=== PATIENT | female | born 1985 | race Caucasian/White ===

== ENCOUNTER → 2016-05-17 | Outpatient (CLI) | payer BC, OTHER, SELFPAY ==
[~2016-05-17] MED LIST: ANUS2.5C2 TOP; DIBU0.5O TOP; MOM30SS PO; MOTR200T44 PO; PERCOCET PO; PRENTAB16 PO; ZOMI5SPR
[2016-05-18 10:54] LABS: HBsAg Prenatal NEGATIVE (NEGATIVE)
== END ==
LOC: M LAB 08:01
PROVIDERS: ATTEND Advanced Practice Midwife
DX: Z34.81 Encounter for supervision of other normal pregnancy, first trimester (principal)

== ENCOUNTER → 2016-08-15 | Outpatient (CLI) | payer MEDICAID ==
[2016-08-15 16:18] LABS: MEAN CORPUSCULAR VOLUME 91.3 fl (80.0-96.0); RED CELL DISTRIBUTION WIDTH 13.1 % (11.5-14.5); WHITE BLOOD COUNT 10.5 K/mm3 (4.0-10.0)
--- NOTE | 2016-08-15 17:31 | REP ---
OB ULTRASOUND: REASON: anatomy. PRIORS: None. Multiple ultrasonic images of the gravid uterus show a single living intrauterine gestation the cephalic presentation. Doppler interrogation of the heart shows a heart rate of 141 beats per minute. The placenta is posterior and not low lying. The subjective aminotic fluid volume is within normal limits. The cervix measures 3.6 cm in length and is closed. Evaluation of the maternal adnexal spaces showed no abnormalities. The structures visualized as unremarkable are as follows: Thalami, cavum septum pellucidum, cerebellum, cisterna magna, spine, urinary bladder, three vessel umbilical cord, cord insertion, four chamber heart, outflow tracts right and left, upper lip, stomach, and both upper and lower extremities. The kidneys were not optimally visualized. BPD 6.3 cm = 25 weeks 2 days HC 23.1 cm = 25 weeks 1 day AC 22.4 cm = 26 weeks 5 days FL 4.9 cm = 26 weeks 5 days Estimated weight is 940 grams which is at the 97th percentile for a 24 week 4 day gestational age. IMPRESSION: Single intrauterine gestation as described above with an estimated gestational age of 26 weeks 2 days via composite criteria with an estimated date of delivery of 11/19/2016 by today's exam. No anomalies were detected, however, only one of the kidneys was well visualized. I would recommend a followup examination to repeat imaging of the kidneys. Signed by Jsoue Soliz DO 08/17/2016 03:42 P
== END ==
LOC: M LAB 15:20
PROVIDERS: ATTEND Obstetrics & Gynecology
DX: Z36 Encounter for antenatal screening of mother (principal); Z3A.26 26 weeks gestation of pregnancy

== ENCOUNTER → 2016-10-18 | Outpatient (REF) | payer MEDICAID, OTHER ==
[2016-10-18 18:19] LABS: MEAN CORPUSCULAR HEMOGLOBIN 28.8 pg (27.0-33.0); MEAN CORPUSCULAR HGB CONC 32.8 g/dl (32.0-36.5); MEAN CORPUSCULAR VOLUME 87.6 fl (80.0-96.0); RED CELL DISTRIBUTION WIDTH 12.6 % (11.5-14.5); WHITE BLOOD COUNT 12.5 K/mm3 (4.0-10.0)
[2016-10-18 19:04] LABS: ALBUMIN 2.8 GM/DL (3.2-5.2); ALBUMIN/GLOBULIN RATIO 0.78 (1.00-1.93); ALKALINE PHOSPHATASE 135 U/L (45-117); ALT/SGPT 11 U/L (12-78); ANION GAP 8 MEQ/L (8-16); AST/SGOT 15 U/L (15-37); BILIRUBIN,TOTAL 0.2 MG/DL (0.2-1.0); BLOOD UREA NITROGEN 6 MG/DL (7-18); CALCIUM LEVEL 8.4 MG/DL (8.5-10.1); CARBON DIOXIDE LEVEL 25 MEQ/L (21-32); CHLORIDE LEVEL 104 MEQ/L (98-107); CREATININE FOR GFR 0.45 MG/DL (0.55-1.02); GLOMERULAR FILTRATION RATE > 60.0 (>60); GLUCOSE, FASTING 76 MG/DL (70-105); SODIUM LEVEL 137 MEQ/L (136-145); TOTAL PROTEIN 6.4 GM/DL (6.4-8.2)
== END ==
LOC: M LAB REF 16:38
PROVIDERS: ATTEND Obstetrics & Gynecology
DX: Z34.83 Encounter for supervision of other normal pregnancy, third trimester (principal); Z3A.33 33 weeks gestation of pregnancy

== ENCOUNTER → 2016-11-01 | Outpatient (REF) | payer MEDICAID | LOC: M LAB REF 17:21 | PROVIDERS: ATTEND Obstetrics & Gynecology | DX: Z34.83 Encounter for supervision of other normal pregnancy, third trimester (principal); Z3A.35 35 weeks gestation of pregnancy ==

== ENCOUNTER 2016-11-29 14:45 | Inpatient (IN) | payer MEDICAID ==
[~2016-11-29] VITALS: Ht 167.6 cm; Wt 82.3 kg
[2016-11-29] VITALS (12 sets, daily range): BP systolic 99–126; BP diastolic 55–81
--- NOTE | 2016-11-29 17:45 | HPEPDOC ---
Obstetrical History & Physical General Date of Admission Primary Care Physician: MAINOR MCQUEEN CNM History of Present Illness Patient is a 31 year old female who is a at 39.5 weeks with an MIRELLA of 12/01/16 based off of her LMP and consistent with her 1st trimester ultrasound. She initated care in hr 1st trimester at [facility]. Her has been uncomplicated. She has a history of a prior c/s from 2003 with a to follow in 2013. She presents to L&D today with complaints of contractions. She presented in the office in the am and was found to be 4-5 cm. After presenting to L&D her cervix was 5/75/-2 with a moderate amount of bloody show. She progressed to 5-6/80/-2, midposition, bloody show, with a bulging bag of fluid. She reports active movement. Denies leaking of fluid. Chief Complaint: Contractions, term Information Provided By: Patient Age: 31 : 3 Term: 2 Pre-term: 0 Abortions: 0 Livin Care Care: Good Care Dating Final EDC: Dec 01, 2016 Final EDC by: LMP LMP: Feb 25, 2016 EGA at Admission: 39.5 Antepartum Course Diagnos(e)s Prior Prior Height (inches): 66 Pre- weight (lbs.): 155 Admission Weight (lbs.): 184 Change in Weight (lbs.): 29 Past Medical History Past Obstetrical History #1: Past Obstetrical History: Multigravida Gestation: 37 Type of Delivery: Ceserean section (11/2003) Sex of Infant: Female (weighting 5 lbs 10oz) Complications: Yes (oligohydramnios and breech presentation) Past Obstetrical History #2: Gestation: 40.6 Type of Delivery: Spontaneous Vaginal Del. Sex of Infant: Female (weighing 7 lbs 1 oz) Complications: No () HEAD CHEF History: No pertinent history Past Medical History Medical History Varicella as a child Surgical History: section, Dilatation and Curettage Family History Significant Family History: Cancer, Hypertension Social History Family situation: Spouse/partner home Psychosocial History: No pertinent psych hx * Smoker: former Smoker Alcohol: Denies Drugs: denies Abuse Violence Screening Have you been hit/kicked/slapp: No Have you been sexually assault: No Allergies Coded Allergies: Diazepam (Unverified Allergy, Mild, 02/02/14) Medications Scheduled PRN Zolmitriptan (Zomig Nasal [place]) 5 Mg Spr, 5 MG NA PRN PRN for MIGRAINE Physical Examination Physical Examination GENERAL: Alert and oriented times three. BREAST: . ABDOMEN: Gravid and non-tender to touch. FETUS: Is vertex (VTX) by sterile vaginal examination (SVE), fetus is vertex ( VTX) by Tobias. EFW via Tobias's is 3900 grams. HEART RATE: Regular rate and rhythm. LUNGS: Clear to auscultation (CTA). EXTREMITIES: No edema. No clonus. Vital Signs/I&O Vital Signs Date Time Temp Pulse Resp B/P (MAP) Pulse Ox O2 Delivery O2 Flow Rate FiO2 11/29/16 17:13 85 18 112/67 (82) 11/29/16 15:28 98.9 98 Room Air Laboratory Data Urine Culture: No Growth Pertinent Laboratoy Data Blood Type: A+ RBC Antibody Screen: Negative HIV: Negative Hepatitis B: Negative Rapid Plasma Reagin: Nonreactive Rubella: Immune Chlamydia/Gonorrhea: Negative Group B Streptococcus: Negative Quad Screen Test: Positive Glucose Tolerance Test: 94 Anatomy Ultrasound Ultrasound Date: Nov 08, 2016 Placenta Location: Posterior Normal Anatomy: Yes (8lbs 3 oz.) Placenta Previa: No Vaginal Examination Dilation: other (56 cm) Effacement: 75% Station: -2 Cervical Consistency: Soft Cervical Position: Middle Presentation: Cephalic presentation Position: Vertex (occiput) Assessment Heart Rate (FHR): 120 Variability: Moderate Accelerations: Positive Decelerations: None Tocometer Contractions: Yes Frequency: other (2 to 7 minutes) Strength: palpated as moderate Multi-drug resistant Organism: No history of MDRO Assessment/Plan Assessment IUP at 39.5 wks gestation Prior with successful , Desires TOLAC Category I FHR tracing Active labor Plan Patient admitted to L&D. Labs and IV per protocol. Dr. Smith present in hospital and anesthesia notified of . Clear liquid diet. OOB ad cecilia. Patient desires an epidural for pain management. Anesthesia consult ordered. Anticipate cervical change and . Consider IV Pitocin or AROM. Dr Augustine aware of patient being in department MAINOR MCQUEEN CNM Nov 29, 2016 17:45
[2016-11-29] MEDS ORDERED: LACTATED RINGER'S 1000 ML IV STA (18:24)
[2016-11-29] MEDS ORDERED: LR 1,000 ML IV SCH (18:24)
[2016-11-29 18:52] LABS: MEAN CORPUSCULAR HEMOGLOBIN 28.7 pg (27.0-33.0); MEAN CORPUSCULAR HGB CONC 33.5 g/dl (32.0-36.5); MEAN CORPUSCULAR VOLUME 85.7 fl (80.0-96.0); RED CELL DISTRIBUTION WIDTH 16.1 % (11.5-14.5); WHITE BLOOD COUNT 10.8 K/mm3 (4.0-10.0)
[2016-11-29] MEDS ORDERED: FENTANYL 2MCG/ML ROPIVACAINE 0.2% IN 0.9% NACL 200ML IVBAG As Ordered ONE (21:33)
[2016-11-29] MEDS ORDERED: FENTANYL/ROPIVACAINE/NACL BAG 200 ML EPIDURAL SCH (22:30)
[2016-11-29] MEDS ORDERED: LACTATED RINGER'S 1000 ML IV PRN (22:30)
[2016-11-29] MEDS ORDERED: NALOXONE INJ 0.4 MG/1 ML VIAL (J2310) IV PRN (22:30)
[2016-11-29] MEDS ORDERED: ePHEDrine SULFATE 25 MG/5 ML(5MG/ML) SYRINGE IV PRN (22:30)
[2016-11-29] MEDS ORDERED: diphenhydrAMINE INJ 50MG/ML VIAL (J1200) IV PRN (22:30)
[2016-11-29] MEDS ORDERED: EPIDURAL/PCA KEYS XX PRN (22:30)
[2016-11-29] MEDS ORDERED: ONDANSETRON 4MG/2ML VIAL (J2405) IV PRN (22:30)
[2016-11-29] MEDS ORDERED: REFRIGERATOR IV KEYS XX PRN (22:30)
[2016-11-29] MEDS ORDERED: EPIDURAL COMMENT XX SCH (22:30)
[2016-11-29] MEDS ORDERED: OXYTOCIN DRIP 30 UNITS in APPROPRIATE DILUENT 1 EA IV SCH (22:45)
--- NOTE | 2016-11-29 22:54 | IPNPDOC ---
Text Note Date of Service The patient was seen on 11/29/16. NOTE Subjective: Patient reports she is comfortable with her epidural. Objective: FHR: 135, moderate variability, positive accelerations, no decelerations. Contractions every 1.5-7 min. Assessment: IUP at 39.5 wks gestation, prior with successful , TOLAC, active labor, Category I FHR tracing Plan: Plan Pitocin. Risks, benefits, and alternatives reviewed with patient. Patient counseled and accepts Pitocin augmentation. Consider AROM. Anticipate cervical change and . VS,Fishbone, I+O VS, Fishbone, I+O Laboratory Tests 11/29/16 18:41 Red Blood Count 4.09, Mean Corpuscular Volume 85.7, Mean Corpuscular Hemoglobin 28.7, Mean Corpuscular Hemoglobin Concent 33.5, Red Cell Distribution Width 16.1 H Vital Signs Date Time Temp Pulse Resp B/P (MAP) Pulse Ox O2 Delivery O2 Flow Rate FiO2 11/29/16 22:11 97.6 109 18 107/69 (82) 11/29/16 15:28 98 Room Air MAINOR MCQUEEN CNM Nov 29, 2016 22:54
[2016-11-30] MEDS ORDERED: METHYLERGONOVINE MALEATE 0.2 MG/ML VIAL (J2210) As Ordered ONE (03:34)
[2016-11-30] MEDS ORDERED: OXYTOCIN DRIP 30 UNITS in APPROPRIATE DILUENT 1 EA IV SCH (04:44)
[2016-11-30] MEDS ORDERED: ANUSOL HC CREAM 30GM TOP PRN (04:45)
[2016-11-30] MEDS ORDERED: DOCUSATE SODIUM 100 MG CAP PO PRN (04:45)
[2016-11-30] MEDS ORDERED: METHYLERGONOVINE MALEATE 0.2 MG/ML VIAL (J2210) IM ONE (04:45)
[2016-11-30] MEDS ORDERED: METHYLERGONOVINE MALEATE 0.2 MG TAB PO PRN (04:45)
[2016-11-30] MEDS ORDERED: MEASLES,MUMPS,RUBELLA VACCINE INJ (MMR-II) (90707) SC SCH (04:45)
[2016-11-30] MEDS ORDERED: RHOGAM 300 MCG (1500 IU) INJ (J2790) IM SCH (04:45)
[2016-11-30] MEDS ORDERED: DIBUCAINE 1% OINTMENT 30GM TOP PRN (04:45)
--- NOTE | 2016-11-30 05:11 | DNPDOC ---
[facility] Delivery Note Delivery Note DATE OF DELIVERY: Nov 29, 2016 at 03:15 POST DELIVERY DIAGNOSIS: Delivered. PROCEDURE: . DESIGN CHIEF: Mainor Aden CNM, CLARIBEL ANESTHESIA: epidural ESTIMATED BLOOD LOSS: 700 mL. FINDINGS: 9 pound 3 ounce 4160 grams, male infant, Score 9/9, nuchal cord times 1 loose. DELIVERY SUMMARY: Patient is a 31-year-old female, now a who was admitted to labor and delivery in active labor. She received an epidural for pain management. Her labor was augmented with IV Pitocin. She spontaneously ruptured of clear fluids at 0100. She progressed to fully dilated at 0221. She pushed to a live male at 0315 in the ROP position with restitution to ROT. A loose nuchal was noted and reduced. The anterior shoulder delivered with ease and the corpus immediately followed. The baby was placed on maternal abdomen active and crying. The cord was clamped 2 after 3 minutes and cut by father of the baby. Three-vessel cord noted. The placenta delivered at 0321 spontaneously with trailing membranes. The membranes were removed with ring forceps. Uterine hemostasis achieved by rapid infusion of IV Pitocin and fundal massage. A dose of Methergine IM was given to help with some excessive bleeding. The perineum and vagina were inspected and found to have a second-degree perineal laceration which was repaired with a 3. 0 Vic[address]ide [address]1 until hemostasis was achieved. The perineum was very edematous. Order for ice diaper to be given. EBL 700. 9 and 9. Weight 9 lbs. 3 oz., 4160 g. Mom plans to breast-feed baby. MAINOR ADEN CNM Nov 30, 2016 05:11
[2016-11-30 06:00] VITALS: BP 122/80
[2016-11-30] MEDS: ACETAMINOPHEN 500 MG TAB PO PRN ×3 (06:42→22:42)
[2016-11-30] MEDS: IBUPROFEN 800 MG TAB PO PRN ×2 (06:42→15:59)
[2016-11-30] MEDS: PRENATAL VITAMINS CHEWABLE TABLET PO SCH (08:20)
[2016-11-30 18:28] VITALS: BP 108/67
[2016-12-01] MEDS: IBUPROFEN 800 MG TAB PO PRN (04:51)
[2016-12-01 06:12] VITALS: BP 99/62
[2016-12-01 07:46] LABS: MEAN CORPUSCULAR HEMOGLOBIN 28.5 pg (27.0-33.0); MEAN CORPUSCULAR HGB CONC 33.2 g/dl (32.0-36.5); MEAN CORPUSCULAR VOLUME 86.1 fl (80.0-96.0); RED CELL DISTRIBUTION WIDTH 16.2 % (11.5-14.5)
[2016-12-01] MEDS: PRENATAL VITAMINS CHEWABLE TABLET PO SCH (08:27)
[2016-12-01] MEDS: ACETAMINOPHEN 500 MG TAB PO PRN (12:39)
--- NOTE | 2016-12-02 21:55 | DSES ---
DATE OF ADMISSION: 11/29/2016 DATE OF DISCHARGE: 12/01/2016 FINAL DIAGNOSIS: Status post successful vaginal after () at term. DISCHARGE CONDITION: Stable. DISCHARGE INSTRUCTIONS: Given. The patient is to call if there is any severe bleeding, pain or temperature greater than 101. BRIEF HISTORY: Ms. Godinez is 31-year-old female 3, para 2-0-0-2, was admitted at 39-5/7 weeks gestation in active labor. She has a history of prior section followed by successful vaginal after (). She now desires another trial of labor. She underwent another successful vaginal after () , was then transferred to maternity for care. she did well, remained afebrile all throughout her hospital stay. On day number two, her exam was within normal limits. At this point a decision was made for discharge. Discharge instructions given. She needs to call the office to make an appointment for the six week visit.
== END 2016-12-01 15:15 | disposition home or self-care (01) | DRG 560 ==
LOC: M LDO 14:45 → M LDI 18:28 → M OBS 11-30 06:33
PROVIDERS: ADMIT Advanced Practice Midwife; ATTEND Advanced Practice Midwife
PROC: 10E0XZZ Delivery of Products of Conception, External Approach (ICD-10-PCS; principal; 2016-11-29)
PROC: 0KQM0ZZ Repair Perineum Muscle, Open Approach (ICD-10-PCS; 2016-11-29)
DX: O34.211 Maternal care for low transverse scar from previous cesarean delivery (principal); Z3A.39 39 weeks gestation of pregnancy; O70.1 Second degree perineal laceration during delivery; Z37.0 Single live birth

== ENCOUNTER 2017-08-16 10:17 | Emergency (ER) | payer OTHER, MEDICAID ==
[2017-08-16] MEDS: diphenhydrAMINE INJ 50MG/ML VIAL (J1200) IV (10:42)
[2017-08-16] MEDS: NS 1,000 ML IV (10:45)
[2017-08-16] MEDS: METOCLOPRAMIDE INJ 10MG/2ML VIAL (J2765) IV (10:45)
[2017-08-16] MEDS: KETOROLAC 30 MG/ML VIAL (J1885) IV (10:45)
[2017-08-16] MEDS: ACETAMINOPHEN 325 MG TAB PO (12:00)
== END 2017-08-16 12:46 | disposition home or self-care (01) ==
LOC: M ED 10:17
DX: G43.709 Chronic migraine without aura, not intractable, without status migrainosus (principal); Z88.8 Allergy status to other drugs, medicaments and biological substances
CPT/HCPCS: J1200

== ENCOUNTER → 2017-09-02 | Outpatient (CLI) | payer OTHER ==
[2017-09-02 15:00] LABS: HEMATOCRIT 38.5 % (36.0-47.0); HEMOGLOBIN 13.3 g/dl (12.0-15.5); MEAN CORPUSCULAR HGB CONC 34.5 g/dl (32.0-36.5); MEAN CORPUSCULAR VOLUME 86.7 fl (80.0-96.0); PLATELET COUNT, AUTOMATED 394 10^3/uL (150-450); RED BLOOD COUNT 4.44 10^6/uL (4.00-5.40); WHITE BLOOD COUNT 7.8 10^3/uL (4.0-10.0)
[2017-09-02 15:38] LABS: LUTEINIZING HORMONE 6.6 mIU/mL
[2017-09-02 15:39] LABS: FOLLICLE STIMULATING HORMONE 5.1 mIU/mL
[2017-09-02 15:40] LABS: FREE T4 1.11 NG/DL (0.76-1.46); THYROID STIMULATING HORMONE 0.748 uIU/ML (0.358-3.740)
[2017-09-04 14:16] LABS: TESTOSTERONE FREE (DIRECT) 1.5 pg/mL (0.0-4.2)
== END ==
LOC: M LAB 14:23
DX: N92.1 Excessive and frequent menstruation with irregular cycle (principal)
CPT/HCPCS: 83001

== ENCOUNTER → 2017-09-09 | Outpatient (CLI) | payer OTHER | LOC: M RAD 16:40 | DX: N92.1 Excessive and frequent menstruation with irregular cycle (principal) | CPT/HCPCS: 76856 ==

== ENCOUNTER → 2019-11-12 | Outpatient (CLI) | payer OTHER ==
[~2019-11-12] MED LIST changes: +MULT1CHW26 PO
[2019-11-12 07:06] LABS: BASO # 0.1 10^3/uL (0.0-0.2); EOS # 0.1 10^3/uL (0.0-0.5); EOS % 1.6 % (0.0-3.0); HEMATOCRIT 39.5 % (36.0-47.0); HEMOGLOBIN 13.2 g/dl (12.0-15.5); LYMPH # 2.4 10^3/uL (1.5-5.0); LYMPH % 34.6 % (24.0-44.0); MEAN CORPUSCULAR HEMOGLOBIN 29.6 pg (27.0-33.0); MEAN CORPUSCULAR HGB CONC 33.4 g/dl (32.0-36.5); MEAN CORPUSCULAR VOLUME 88.6 fl (80.0-96.0); MONO # 0.6 10^3/uL (0.0-0.8); MONO % 8.2 % (0.0-5.0); NEUTROPHILS # 3.7 10^3/uL (1.5-8.5); NEUTROPHILS % 54.5 % (36.0-66.0); PLATELET COUNT, AUTOMATED 401 10^3/uL (150-450); RED BLOOD COUNT 4.46 10^6/uL (4.00-5.40); WHITE BLOOD COUNT 6.8 10^3/uL (4.0-10.0)
[2019-11-12 07:27] LABS: HEMOGLOBIN A1c 5.3 %
[2019-11-12 07:42] LABS: ALBUMIN 3.9 GM/DL (3.2-5.2); ALT/SGPT 18 U/L (12-78); BILIRUBIN,TOTAL 0.5 MG/DL (0.2-1.0); BLOOD UREA NITROGEN 15 MG/DL (7-18); CALCIUM LEVEL 8.8 MG/DL (8.5-10.1); CARBON DIOXIDE LEVEL 27 MEQ/L (21-32); CHLORIDE LEVEL 106 MEQ/L (98-107); CHOLESTEROL LEVEL 161 MG/DL (<200); CHOLESTEROL RISK RATIO 3.285 (<5); CREATININE FOR GFR 0.74 MG/DL (0.55-1.30); FREE T4 1.05 NG/DL (0.76-1.46); GLOMERULAR FILTRATION RATE > 60.0 (>60); GLUCOSE, FASTING 84 MG/DL (70-100); HDL CHOLESTEROL 49 MG/DL (>40); LDL CHOLESTEROL 99 MG/DL (<100); NON-HDL-C 112 MG/DL; POTASSIUM SERUM 4.2 MEQ/L (3.5-5.1); SODIUM LEVEL 140 MEQ/L (136-145); TOTAL PROTEIN 7.5 GM/DL (6.4-8.2); TRIGLYCERIDES LEVEL 63 MG/DL (<150)
[2019-11-12 11:57] LABS: TOTAL 25(OH) VITAMIN D 34.1 NG/ML (30.0-100.0)
== END ==
LOC: M LAB 06:41
PROVIDERS: ATTEND Physician Assistant
DX: Z13.29 Encounter for screening for other suspected endocrine disorder (principal); Z13.220 Encounter for screening for lipoid disorders

== ENCOUNTER → 2020-01-14 | Outpatient (REF) | payer OTHER | LOC: M SFHCWAGY 13:13 | PROVIDERS: ATTEND Advanced Practice Midwife | DX: Z12.4 Encounter for screening for malignant neoplasm of cervix (principal) ==

== ENCOUNTER → 2020-02-18 | Outpatient (REF) | payer OTHER | LOC: M LAB REF 10:05 | PROVIDERS: ATTEND Specialist | DX: R87.610 Atypical squamous cells of undetermined significance on cytologic smear of cervix (ASC-US) (principal) ==

== ENCOUNTER → 2020-03-13 | Outpatient (CLI) | payer OTHER | LOC: M LABSMTC 08:29 | PROVIDERS: ATTEND Anesthesiology | DX: Z01.812 Encounter for preprocedural laboratory examination (principal); Z20.828 Contact with and (suspected) exposure to other viral communicable diseases ==

== ENCOUNTER 2020-03-18 12:56 | Day surgery (SDC) | payer OTHER ==
[~2020-03-18] VITALS: Ht 167.6 cm; Wt 80.3 kg
[~2020-03-18 12:56] MED LIST changes: +LIDOCAINE 1% MDV 20ML VIAL SQ PRN; +LR 1,000 ML IV ONE
[2020-03-18 13:42] LABS: HEMATOCRIT 41.7 % (36.0-47.0); HEMOGLOBIN 13.5 g/dl (12.0-15.5); MEAN CORPUSCULAR HEMOGLOBIN 28.7 pg (27.0-33.0); MEAN CORPUSCULAR HGB CONC 32.4 g/dl (32.0-36.5); MEAN CORPUSCULAR VOLUME 88.7 fl (80.0-96.0); PLATELET COUNT, AUTOMATED 439 10^3/uL (150-450); WHITE BLOOD COUNT 12.2 10^3/uL (4.0-10.0)
[2020-03-18] MEDS ORDERED: ZOLMITRIPTAN 5 MG ONE (14:45)
[2020-03-18] MEDS ORDERED: LIDOCAINE 2% 100MG/5ML SDV (FOR ANES.) As Ordered ONE (15:15)
[2020-03-18] MEDS ORDERED: propofoL 200 MG/20 ML VIAL As Ordered ONE (15:15)
[2020-03-18] MEDS ORDERED: ROCURONIUM BROMIDE 50 MG/5 ML VIAL As Ordered ONE (15:15)
[2020-03-18] MEDS ORDERED: ONDANSETRON 4MG/2ML VIAL As Ordered ONE (15:15)
[2020-03-18] MEDS ORDERED: dexameTHASONE 4 MG/ML 1ML VIAL (J1100 PER 1MG) As Ordered ONE (15:15)
[2020-03-18] MEDS ORDERED: MIDAZOLAM INJ 2MG/2ML VIAL (J2250 PER 1MG) As Ordered ONE (15:16)
[2020-03-18] MEDS ORDERED: fentaNYL 100 MCG/2 ML INJECTION (J3010) As Ordered ONE (15:16)
[2020-03-18] MEDS ORDERED: KETOROLAC 60MG 2ML VIAL As Ordered ONE (15:21)
[2020-03-18] MEDS ORDERED: IODINE STRONG SOLN 15 ML BTL As Ordered ONE (15:45)
[2020-03-18] MEDS ORDERED: BUPIVACAINE HCL 0.25% 30ML VIAL As Ordered ONE (15:45)
[2020-03-18] MEDS ORDERED: ACETAMINOPHEN 1000MG 100ML IV BTL (OFIRMEV) (J0131 PER 10MG) As Ordered ONE (16:19)
[2020-03-18] MEDS ORDERED: SUGAMMADEX SODIUM 500 MG/5 ML VIAL (BRIDION) As Ordered ONE (16:19)
[2020-03-18] MEDS ORDERED: HYDROmorphone HCL 2 MG/ML 1ML VIAL (J1170) As Ordered ONE (16:20)
[2020-03-18] MEDS ORDERED: LIDOCAINE W/EPINEPHRINE 1% 20ML VIAL As Ordered ONE (16:28)
[2020-03-18] MEDS ORDERED: LACRILUBE (AKWA TEARS) OPHTH OINT 3.5 GM As Ordered ONE (16:35)
[2020-03-18] MEDS ORDERED: METOCLOPRAMIDE INJ 10MG/2ML VIAL (J2765 PER 1) IV PRN (17:45)
[2020-03-18] MEDS ORDERED: LR 1,000 ML IV SCH ×2 (17:45)
[2020-03-18] MEDS ORDERED: fentaNYL 100 MCG/2 ML INJECTION (J3010) IV PRN (17:45)
[2020-03-18] MEDS ORDERED: PERCOCET 5MG/325MG TAB PO PRN ×2 (17:45)
[2020-03-18] MEDS ORDERED: MORPHINE 2 MG/ML 1ML VIAL (J2270) IV PRN (17:45)
[2020-03-18] MEDS ORDERED: ONDANSETRON 4MG/2ML VIAL IV PRN (17:45)
[2020-03-18] MEDS ORDERED: OXYC1TAB23 PO (17:59)
--- NOTE | 2020-03-18 18:33 | ROOPDOC ---
[facility] Report Of Operation Report of Operation DATE OF PROCEDURE: 03/18/20 PREPROCEDURE DIAGNOSES: Undesired fertility, Moderate cervical dysplasia. POSTPROCEDURE DIAGNOSES: same. PROCEDURE: Laparoscopic bilateral salpingectomy, LEEP of cervix. SURGEON: Radha Jorgensen MD ANESTHESIA: GETA. ESTIMATED BLOOD LOSS: Approximately 20 mL. COMPLICATIONS: none. FINDINGS: normal uterus, fallopian tubes, ovaries. PROCEDURE NOTE: The patient was taken to the operating room where general endotracheal anesthesia was induced. She was prepped and draped in sterile fashion in dorsal lithotomy position. The bladder was emptied with a catheter. A sponge stick was placed in the vagina to use as a manipulator. A periumbilical incision was made with the scalpel. A Veress needle was inserted through this incision while tenting up on the skin of the abdomen. An intra-abdominal location of the Veress needle was assessed with the use of a saline filled syringe. A pneumoperitoneum was created. The Veress needle was removed. A 5 mm trocar using Visiport was inserted through this incision. A 5 and 8 mm suprapubic port were inserted under direct visualization. A grasping instrument used to elevate each fallopian tube. A LigaSure device was used to coagulate and incise broad ligament attachments to the tube. Both fallopian tubes were amputated near their origin. Both tubes removed through the suprapubic ports.. The skin was closed 4-0 Monocryl subcuticular sutures. Dermabond was applied. Sponge, instrument and needle counts are correct. Attention was turned to the vagina. Speculum with smoke valve was placed. The anterior lip of the cervix grasped with tenaculum. The cervix was injected circumferentially with 14 mL of 1% lidocaine with epinephrine. An 8 mm x 15 mm loop with a setting of 90 Castano was used in a single pass excised transformation zone of the cervix. Ball electrocoagulation was used to coagulate the base of the cervix. Monsel's solution was applied. Good hemostasis was noted. All instruments were removed. Sponge and instrument counts are correct. Patient went to the recovery room in stable condition. RADHA JORGENSEN MD Mar 18, 2020 18:33
[2020-03-18 19:30] VITALS: BP 126/76
== END 2020-03-18 19:35 | disposition home or self-care (01) ==
LOC: M SDC 12:56
PROVIDERS: ATTEND Specialist
DX: Z30.2 Encounter for sterilization (principal); N87.0 Mild cervical dysplasia; G43.909 Migraine, unspecified, not intractable, without status migrainosus; Z86.2 Personal history of diseases of the blood and blood-forming organs and certain disorders involving the immune mechanism; Z87.891 Personal history of nicotine dependence; Z88.0 Allergy status to penicillin
CPT/HCPCS: 36415; 57461; 58661; 81025; 85027; 88302; 88307; 88342; 96374; 96375; J0131; J1100; J1170; J1885; J2250; J2405; J2765; J3010

== ENCOUNTER 2020-03-26 20:42 | Emergency (ER) | payer OTHER ==
[~2020-03-26] VITALS: Ht 167.6 cm; Wt 81.1 kg
[~2020-03-26 20:42] MED LIST changes: -LIDOCAINE 1% MDV 20ML VIAL SQ PRN; -LR 1,000 ML IV ONE; +OXYC1TAB23 PO
[2020-03-26] MEDS ORDERED: NS 1,000 ML IV ONE (21:45)
[2020-03-26 21:58] LABS: BASO # 0.1 10^3/uL (0.0-0.2); BASO % 0.7 % (0.0-1.0); EOS # 0.2 10^3/uL (0.0-0.5); EOS % 1.8 % (0.0-3.0); HEMATOCRIT 40.8 % (36.0-47.0); HEMOGLOBIN 13.3 g/dl (12.0-15.5); LYMPH # 3.9 10^3/uL (1.5-5.0); LYMPH % 35.9 % (24.0-44.0); MEAN CORPUSCULAR HGB CONC 32.6 g/dl (32.0-36.5); MEAN CORPUSCULAR VOLUME 89.1 fl (80.0-96.0); MONO # 0.8 10^3/uL (0.0-0.8); MONO % 7.3 % (0.0-5.0); NEUTROPHILS # 5.8 10^3/uL (1.5-8.5); PLATELET COUNT, AUTOMATED 446 10^3/uL (150-450); RED BLOOD COUNT 4.58 10^6/uL (4.00-5.40); WHITE BLOOD COUNT 10.8 10^3/uL (4.0-10.0)
[2020-03-26 22:06] LABS: HCG, SERUM QUALITATIVE NEGATIVE (NEGATIVE)
[2020-03-26 22:11] LABS: INR 0.95; PROTHROMBIN TIME 12.9 SECONDS (12.5-14.3)
[2020-03-26 22:12] LABS: PARTIAL THROMBOPLASTIN TIME 31.3 SECONDS (24.2-38.5)
[2020-03-26 22:17] LABS: BLOOD UREA NITROGEN 14 MG/DL (7-18); CALCIUM LEVEL 9.3 MG/DL (8.5-10.1); CARBON DIOXIDE LEVEL 28 MEQ/L (21-32); CHLORIDE LEVEL 108 MEQ/L (98-107); CREATININE FOR GFR 0.81 MG/DL (0.55-1.30); GLOMERULAR FILTRATION RATE > 60.0 (>60); GLUCOSE, FASTING 108 MG/DL (70-100); POTASSIUM SERUM 3.7 MEQ/L (3.5-5.1); SODIUM LEVEL 141 MEQ/L (136-145)
--- NOTE | 2020-03-26 23:05 | REPVR ---
PROCEDURE INFORMATION: Exam: US Pelvis Complete, Transabdominal and US Pelvis, Transvaginal Exam date and time: 03/26/2020 10:50 PM Age: 35 years old Clinical indication: Other: Vaginal bleeding; Prior surgery; Surgery date: 3-7 days post-operative; Surgery type: Patient had salpingectomy on 03/18/2020; Additional info: Vag bleeding heavy, 1 wk S/P salpingoectomy TECHNIQUE: Imaging protocol: Real-time transabdominal and transvaginal pelvic ultrasound (complete) with image documentation. Transvaginal imaging was used for better evaluation of the endometrium, adnexa, and/or cervix. COMPARISON: US PELVIC NON-OB COMPLETE 09/09/2017 4:53 PM FINDINGS: Uterus/cervix: 8 x 4.2 x 5 cm. Normal endometrial thickness, measuring approximately 3 mm. Right ovary: 3 x 2 x 2 cm. Multiple follicles. No solid mass. Normal ovarian blood flow. Left ovary: 3.6 x 2.4 x 2.6 cm. 2.8 x 1.7 x 2.2 cm follicular cyst. No solid mass. Normal ovarian blood flow. Intraperitoneal space: No intraperitoneal free fluid. Urinary bladder: Normal. IMPRESSION: No acute sonographic findings. Electronically signed by: Floyd Lau On 03/26/2020 23:05:38 PM
[2020-03-26 23:37] VITALS: BP 137/84
== END 2020-03-26 23:39 | disposition home or self-care (01) ==
LOC: M ED 20:42
DX: N99.821 Postprocedural hemorrhage of a genitourinary system organ or structure following other procedure (principal); R51.9 Headache, unspecified; Z87.891 Personal history of nicotine dependence; Z79.899 Other long term (current) drug therapy; Z88.8 Allergy status to other drugs, medicaments and biological substances

== ENCOUNTER → 2020-05-31 | Outpatient (REF) | payer OTHER | LOC: M LAB REF 17:03 | PROVIDERS: ATTEND Physician Assistant | DX: N39.0 Urinary tract infection, site not specified (principal) ==

== ENCOUNTER → 2020-10-04 | Outpatient (REF) | payer OTHER | LOC: M SFHCWAGY 18:40 | PROVIDERS: ATTEND Specialist | DX: R87.610 Atypical squamous cells of undetermined significance on cytologic smear of cervix (ASC-US) (principal) ==

== ENCOUNTER 2020-10-17 17:45 | Emergency (ER) | payer OTHER ==
[~2020-10-17] VITALS: Ht 167.6 cm; Wt 77.3 kg
[2020-10-17 19:15] LABS: BASO # 0.1 10^3/uL (0.0-0.2); BASO % 0.8 % (0.0-1.0); EOS # 0.2 10^3/uL (0.0-0.5); EOS % 1.6 % (0.0-3.0); HEMATOCRIT 39.5 % (36.0-47.0); HEMOGLOBIN 13.1 g/dl (12.0-15.5); LYMPH # 2.7 10^3/uL (1.5-5.0); LYMPH % 24.9 % (24.0-44.0); MEAN CORPUSCULAR HEMOGLOBIN 29.2 pg (27.0-33.0); MEAN CORPUSCULAR HGB CONC 33.2 g/dl (32.0-36.5); MONO # 0.8 10^3/uL (0.0-0.8); NEUTROPHILS % 65.4 % (36.0-66.0); PLATELET COUNT, AUTOMATED 439 10^3/uL (150-450); RED BLOOD COUNT 4.49 10^6/uL (4.00-5.40); WHITE BLOOD COUNT 10.6 10^3/uL (4.0-10.0)
[2020-10-17 19:23] LABS: BLOOD UREA NITROGEN 14 MG/DL (7-18); CARBON DIOXIDE LEVEL 27 MEQ/L (21-32); CHLORIDE LEVEL 107 MEQ/L (98-107); CK-MB VALUE MASS < 1.0 NG/ML (<3.6); CPK CREATINE PHOSPHOKINASE 72 U/L (26-192); CREATININE FOR GFR 0.66 MG/DL (0.55-1.30); GLOMERULAR FILTRATION RATE > 60.0 (>60); GLUCOSE, FASTING 89 MG/DL (70-100); MB/CK RELATIVE INDEX 1.39 (< OR =4); POTASSIUM SERUM 3.7 MEQ/L (3.5-5.1); SODIUM LEVEL 139 MEQ/L (136-145); TROPONIN I < 0.02 NG/ML (< 0.10)
--- NOTE | 2020-10-17 20:44 | ECGEPIP ---
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
[2020-10-17 21:15] VITALS: BP 115/84
--- NOTE | 2020-10-17 22:03 | REPVR ---
PROCEDURE INFORMATION: Exam: XR Chest Exam date and time: 10/17/2020 8:34 PM Age: 35 years old Clinical indication: Chest pain TECHNIQUE: Imaging protocol: XR of the chest. Views: 1 view. COMPARISON: CR Chest, 2 view PA, Lat 08/22/2015 12:28 PM FINDINGS: Tubes, catheters and devices: A loop recorder device is noted projecting over the left inferior aspect of the heart. Lungs: Unremarkable. No consolidation. No pulmonary edema. Pleural spaces: Unremarkable. No pleural effusion. No pneumothorax. Heart/Mediastinum: Unremarkable. No cardiomegaly. Bones/joints: Unremarkable. IMPRESSION: No acute findings. Electronically signed by: Emanuel Argueta On 10/17/2020 22:02:49 PM
== END 2020-10-17 21:33 | disposition home or self-care (01) ==
LOC: EDBD 17:45 → M ED 17:45
DX: R07.89 Other chest pain (principal); R00.2 Palpitations; Z88.8 Allergy status to other drugs, medicaments and biological substances; Z98.890 Other specified postprocedural states

== ENCOUNTER → 2021-05-11 | Outpatient (REF) | LOC: M EMP 13:17 | PROVIDERS: ATTEND Family Medicine | DX: Z11.52 Encounter for screening for COVID-19 (principal) ==

== ENCOUNTER → 2022-01-07 | Outpatient (CLI) | payer OTHER ==
[~2022-01-07] MED LIST changes: +LEVOTAB10 PO; +TOPA50TA8 PO
== END ==
LOC: M LABSMTC 09:08
PROVIDERS: ATTEND Anesthesiology
DX: Z01.818 Encounter for other preprocedural examination (principal); Z11.52 Encounter for screening for COVID-19

== ENCOUNTER 2022-01-11 07:38 | Day surgery (SDC) | payer OTHER ==
[~2022-01-11] VITALS: Ht 167.6 cm; Wt 65.8 kg
[~2022-01-11 07:38] MED LIST changes: +LIDOCAINE 2% 100MG/5ML SDV (FOR ANES.) As Ordered ONE; +NS 1,000 ML IV ONE; +propofoL 200 MG/20 ML VIAL As Ordered ONE
[2022-01-11] MEDS ORDERED: propofoL 200 MG/20 ML VIAL As Ordered ONE (09:21)
[2022-01-11 10:00] VITALS: BP 109/72
[2022-01-11] MEDS ORDERED: guaiFENesin DM LIQ 10ML UD PO ONE (10:30)
== END 2022-01-11 10:40 | disposition home or self-care (01) ==
LOC: M OPP 07:38
PROVIDERS: ATTEND Surgery
DX: Z12.11 Encounter for screening for malignant neoplasm of colon (principal); Z83.71 Family history of colonic polyps; Q43.8 Other specified congenital malformations of intestine; Z79.52 Long term (current) use of systemic steroids; Z79.891 Long term (current) use of opiate analgesic; Z79.899 Other long term (current) drug therapy; Z88.5 Allergy status to narcotic agent

== ENCOUNTER → 2022-01-31 | Outpatient (REF) ==
[~2022-01-31] MED LIST changes: -LIDOCAINE 2% 100MG/5ML SDV (FOR ANES.) As Ordered ONE; -NS 1,000 ML IV ONE; -propofoL 200 MG/20 ML VIAL As Ordered ONE
== END ==
LOC: M LABSMTC 11:29
PROVIDERS: ATTEND Family Medicine
DX: Z20.822 Contact with and (suspected) exposure to COVID-19 (principal)

== ENCOUNTER → 2022-03-01 | Outpatient (REF) | payer OTHER | LOC: M SFHCWAGY 17:09 | PROVIDERS: ATTEND Specialist | DX: Z01.419 Encounter for gynecological examination (general) (routine) without abnormal findings (principal) ==

== ENCOUNTER → 2023-02-01 | Outpatient (CLI) | payer OTHER ==
[2023-02-01 10:18] LABS: BASO # 0.1 10^3/uL (0.0-0.2); BASO % 1.3 % (0.0-1.0); EOS # 0.1 10^3/uL (0.0-0.5); EOS % 1.8 % (0.0-3.0); HEMATOCRIT 40.3 % (36.0-47.0); HEMOGLOBIN 13.5 g/dl (12.0-15.5); LYMPH # 2.2 10^3/uL (1.5-5.0); LYMPH % 35.3 % (24.0-44.0); MEAN CORPUSCULAR HGB CONC 33.5 g/dl (32.0-36.5); MEAN CORPUSCULAR VOLUME 89.6 fl (80.0-96.0); MONO # 0.5 10^3/uL (0.0-0.8); MONO % 7.7 % (2.0-8.0); NEUTROPHILS # 3.3 10^3/uL (1.5-8.5); NEUTROPHILS % 53.7 % (36.0-66.0); PLATELET COUNT, AUTOMATED 443 10^3/uL (150-450); WHITE BLOOD COUNT 6.2 10^3/uL (4.0-10.0)
[2023-02-01 10:36] LABS: ALBUMIN 4.2 G/DL (3.2-5.2); ALKALINE PHOSPHATASE 54 U/L (46-116); ALT/SGPT 20 U/L (7.0-40); AST/SGOT 15 U/L (<34); BILIRUBIN,TOTAL 0.4 MG/DL (0.3-1.2); BLOOD UREA NITROGEN 16 MG/DL (9-23); CARBON DIOXIDE LEVEL 24 MMOL/L (20-31); CHLORIDE LEVEL 109 MMOL/L (98-107); CREATININE FOR GFR 0.78 MG/DL (0.55-1.30); GLOMERULAR FILTRATION RATE > 60.0 (>60); GLUCOSE, FASTING 82 MG/DL (60-100); POTASSIUM SERUM 4.5 MMOL/L (3.5-5.1); SODIUM LEVEL 139 MMOL/L (136-145); TOTAL PROTEIN 6.9 G/DL (5.7-8.2)
[2023-02-01 10:38] LABS: THYROID STIMULATING HORMONE 1.448 uIU/ML (0.55-4.78)
[2023-02-06 20:07] LABS: VITAMIN B1 LEVEL WHOLE BLOOD 103.9 nmol/L (66.5-200.0); VITAMIN B6,PYRIDOXAL PHOSPHATE 11.6 ug/L (3.4-65.2); VITAMIN E(ALPHA TOCOPHEROL) 8.2 mg/L (5.9-19.4); VITAMIN E(GAMMA TOCOPHEROL) 0.9 mg/L (0.7-4.9)
== END ==
LOC: M LAB 08:33
PROVIDERS: ATTEND Psychiatry & Neurology Neurology
DX: R51.9 Headache, unspecified (principal); L65.9 Nonscarring hair loss, unspecified

== ENCOUNTER → 2023-07-02 | Outpatient (REF) | payer OTHER | LOC: M SFHCWAGY 13:50 | PROVIDERS: ATTEND Specialist | DX: Z12.4 Encounter for screening for malignant neoplasm of cervix (principal) ==

== ENCOUNTER 2023-10-05 10:06 | Emergency (ER) | payer OTHER ==
[~2023-10-05] VITALS: Ht 167.6 cm; Wt 73.6 kg
[2023-10-05] MEDS ORDERED: KETO10TAB PO (10:15)
[2023-10-05] MEDS ORDERED: TIZA2CAP PO (10:15)
[2023-10-05] MEDS ORDERED: TRAM50TA2 PO (10:15)
[2023-10-05 12:08] LABS: BASO # 0.1 10^3/uL (0.0-0.2); BASO % 0.8 % (0.0-1.0); EOS # 0.1 10^3/uL (0.0-0.5); EOS % 0.6 % (0.0-3.0); HEMATOCRIT 39.4 % (36.0-47.0); HEMOGLOBIN 13.5 g/dl (12.0-15.5); LYMPH # 2.3 10^3/uL (1.5-5.0); LYMPH % 23.5 % (24.0-44.0); MEAN CORPUSCULAR HEMOGLOBIN 30.6 pg (27.0-33.0); MEAN CORPUSCULAR HGB CONC 34.3 g/dl (32.0-36.5); MEAN CORPUSCULAR VOLUME 89.3 fl (80.0-96.0); MONO # 0.7 10^3/uL (0.0-0.8); MONO % 7.3 % (2.0-8.0); NEUTROPHILS # 6.7 10^3/uL (1.5-8.5); NEUTROPHILS % 67.5 % (36.0-66.0); PLATELET COUNT, AUTOMATED 374 10^3/uL (150-450); RED BLOOD COUNT 4.41 10^6/uL (4.00-5.40); WHITE BLOOD COUNT 9.9 10^3/uL (4.0-10.0)
[2023-10-05 12:35] LABS: CK-MB VALUE MASS < 1.0 NG/ML (<3.6)
[2023-10-05 12:37] LABS: BLOOD UREA NITROGEN 9 MG/DL (9-23); CALCIUM LEVEL 9.1 MG/DL (8.5-10.1); CARBON DIOXIDE LEVEL 22 MMOL/L (20-31); CHLORIDE LEVEL 113 MMOL/L (98-107); CREATININE FOR GFR 0.72 MG/DL (0.55-1.30); GLOMERULAR FILTRATION RATE > 60.0 (>60); GLUCOSE, FASTING 95 MG/DL (60-100); POTASSIUM SERUM 3.8 MMOL/L (3.5-5.1); SODIUM LEVEL 141 MMOL/L (136-145)
[2023-10-05 12:41] LABS: CPK CREATINE PHOSPHOKINASE 76 U/L (34-145); MB/CK RELATIVE INDEX 1.31 (< OR =4)
[2023-10-05 12:44] LABS: HCG, SERUM QUALITATIVE NEGATIVE (NEGATIVE)
[2023-10-05 13:27] LABS: ALBUMIN 4.2 G/DL (3.2-5.2); ALKALINE PHOSPHATASE 57 U/L (46-116); ALT/SGPT 19 U/L (7.0-40); AST/SGOT 12 U/L (<34); BILIRUBIN,DIRECT 0.2 MG/DL (<0.4); BILIRUBIN,TOTAL 0.7 MG/DL (0.3-1.2); TOTAL PROTEIN 7.2 G/DL (5.7-8.2)
[2023-10-05 13:31] LABS: THYROID STIMULATING HORMONE 1.862 uIU/ML (0.55-4.78)
[2023-10-05 13:39] LABS: CK-MB VALUE MASS < 1.0 NG/ML (<3.6)
[2023-10-05 13:40] LABS: CPK CREATINE PHOSPHOKINASE 73 U/L (34-145); MB/CK RELATIVE INDEX 1.36 (< OR =4)
[2023-10-05] MEDS: METHOCARBAMOL 1,000 MG/10 ML VIAL IV ONE (13:50)
[2023-10-05] MEDS ORDERED: MORPHINE 4 MG/ML 1ML VIAL IV PRN (14:20)
[2023-10-05] MEDS: PERCOCET 5MG/325MG TAB PO ONE (15:29)
[2023-10-05 15:30] VITALS: BP 121/83; O2SAT 100
[2023-10-05 18:02] VITALS: TEMP 98.3
[2023-10-05] MEDS ORDERED: PERC5TAB12 PO (18:04)
[2023-10-05] MEDS ORDERED: MEDR4PAK PO (18:04)
[2023-10-05] MEDS ORDERED: METH-1164 PO (18:04)
[2023-10-05] MEDS: dexAMETHasone 20MG/5ML VIAL IV ONE (18:09)
[2023-10-05] MEDS: OXYCODONE/APAP 5MG/325MG(HOME DOSE PACK) PO ONE (18:38)
== END 2023-10-05 18:47 | disposition home or self-care (01) ==
LOC: M ED 10:06
DX: M54.50 Low back pain, unspecified (principal); R00.2 Palpitations; Z79.899 Other long term (current) drug therapy; Z88.8 Allergy status to other drugs, medicaments and biological substances
CPT/HCPCS: 72110; 72148; 80048; 80076; 81001; 82550; 82553; 83735; 84443; 84484; 84703; 85025; 93005; 93041; 94760; 96374; 96375; 99285; J1100; J2800

== ENCOUNTER → 2024-03-13 | Outpatient (REF) | payer OTHER ==
[~2024-03-13] MED LIST changes: +KETO10TAB PO; +MEDR4PAK PO; +METH-1164 PO; +PERC5TAB12 PO; +TIZA2CAP PO; +TRAM50TA2 PO
== END ==
LOC: M LAB REF 18:50
PROVIDERS: ATTEND Physician Assistant
DX: N76.0 Acute vaginitis (principal)

== ENCOUNTER → 2024-08-07 | Outpatient (REF) | payer OTHER ==
[2024-08-07 14:33] LABS: BASO # 0.1 10^3/uL (0.0-0.2); BASO % 1.1 % (0.0-1.0); EOS # 0.1 10^3/uL (0.0-0.5); EOS % 1.6 % (0.0-3.0); HEMATOCRIT 43.7 % (36.0-47.0); HEMOGLOBIN 14.4 g/dl (12.0-15.5); LYMPH # 3.2 10^3/uL (1.5-5.0); LYMPH % 39.6 % (24.0-44.0); MEAN CORPUSCULAR HEMOGLOBIN 29.9 pg (27.0-33.0); MEAN CORPUSCULAR VOLUME 90.9 fl (80.0-96.0); MONO # 0.6 10^3/uL (0.0-0.8); MONO % 7.5 % (2.0-8.0); NEUTROPHILS % 49.8 % (36.0-66.0); PLATELET COUNT, AUTOMATED 438 10^3/uL (150-450); RED BLOOD COUNT 4.81 10^6/uL (4.00-5.40)
[2024-08-07 14:41] LABS: ALKALINE PHOSPHATASE 67 U/L (35-104); ALT/SGPT 24 U/L (7.0-40); AST/SGOT 14 U/L (<34); BILIRUBIN,TOTAL 0.4 MG/DL (0.3-1.2); BLOOD UREA NITROGEN 16 MG/DL (9-23); CALCIUM LEVEL 9.2 MG/DL (8.5-10.1); CARBON DIOXIDE LEVEL 25 MMOL/L (20-31); CHLORIDE LEVEL 106 MMOL/L (98-107); CREATININE FOR GFR 0.69 MG/DL (0.55-1.30); GLOMERULAR FILTRATION RATE > 90.0 (>58); GLUCOSE, FASTING 77 MG/DL (60-100); POTASSIUM SERUM 5.2 MMOL/L (3.5-5.1); SODIUM LEVEL 140 MMOL/L (136-145); TOTAL PROTEIN 7.4 G/DL (5.7-8.2)
== END ==
LOC: M LAB REF 13:00
PROVIDERS: ATTEND Psychiatry & Neurology Neurology
DX: R51.9 Headache, unspecified (principal)

== ENCOUNTER → 2024-09-18 | Outpatient (REF) | payer OTHER ==
[~2024-09-18] MED LIST changes: +DEBL1TAB PO; +TOPI-257 PO
[2024-09-23 13:18] LABS: HPV APTIMA Not Detected (Not Detected)
== END ==
LOC: M SFHCWAGY 13:10
PROVIDERS: ATTEND Specialist
DX: Z12.4 Encounter for screening for malignant neoplasm of cervix (principal); R87.5 Abnormal microbiological findings in specimens from female genital organs

== ENCOUNTER → 2024-09-18 | Outpatient (REF) | payer OTHER | LOC: M LAB REF 16:33 | PROVIDERS: ATTEND Physician Assistant | DX: Z45.09 Encounter for adjustment and management of other cardiac device (principal) ==

== ENCOUNTER → 2025-01-08 | Outpatient (CLI) | payer OTHER | LOC: M WHC 06:34 | PROVIDERS: ATTEND Physician Assistant | DX: R10.10 Upper abdominal pain, unspecified (principal) ==

== ENCOUNTER → 2025-02-17 | Outpatient (REF) | payer OTHER | LOC: M PLALAB 16:52 | PROVIDERS: ATTEND Physician Assistant | DX: Z53.9 Procedure and treatment not carried out, unspecified reason (principal) ==

== ENCOUNTER → 2025-04-13 | Outpatient (REF) | payer OTHER ==
[2025-04-15 11:38] LABS: CHLAMYDIA TRACHOMATIS NAA NOT DETECTED (NOT DETECTED)
[2025-04-15 12:12] LABS: BVAB 2 NEGATIVE (NEGATIVE)
[2025-04-15 17:12] LABS: CANDIDA GLABRATA NAA NOT DETECTED (NOT DETECTED); TRICH VAG BY NAA NOT DETECTED (NOT DETECTED)
== END ==
LOC: M SFHCWAGY 16:58
PROVIDERS: ATTEND Physician Assistant
DX: N89.8 Other specified noninflammatory disorders of vagina (principal)